=== PATIENT | male | born 1995 | race Caucasian/White ===

== ENCOUNTER 2025-03-23 01:15 | Emergency (ER) | payer OTHER, SELFPAY ==
[2025-03-23 01:20] VITALS: BP 160/108
[2025-03-23 02:13] VITALS: BP 134/97; BMI 24.6
--- NOTE | 2025-03-23 02:23 | ED.GENMED ---
History of Present Illness
General
Chief Complaint: Musculo-Skeletal Complaint
Source: patient
Exam Limitations: none
Time Seen by Provider: 03/23/25 02:21
Nursing documentation reviewed up to this point in time: agreed with
History of Present Illness
History of Present Illness:
Note:
CHIEF COMPLAINT(S)
Swelling and pain near the elbow.
HISTORY OF PRESENT ILLNESS
The patient is a 29-year-old male who presents with swelling and pain near his right elbow, which began around 7:00 PM on the day of the visit. The patient noticed the discomfort while leaning on a table during dinner, but he was uncertain whether
the discomfort was due to the pressure or another cause. 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 The patient
reports that due to the swelling, he tried to 'squeeze out the fluid' and but he was unsuccessful. He subsequently endured a small scratch/cut over the area after trying to squeeze the swelling. He mentions redness and swelling but denies any
palpable mass prior to attempting drainage. The patient has experienced no fever or systemic illness.
Patient is fully able to extend and flex the arm however he does note some discomfort with this. He denies any fevers or chills, nausea or vomiting, spreading of the redness of the arm, recent injections in the elbow joint.
PHYSICAL EXAM
General: Patient is well appearing and in no acute distress; non-toxic
Skin: Warm and dry, small area of erythema noted over the left olecranon
Head: Normocephalic, atraumatic
Eyes: Sclera non-icteric. EOMs intact.
Cardiac: Regular rate
Peripheral Vascular: 2+ radial and ulnar pulses bilaterally
Pulm: Normal respiratory effort
Abdomen: No abdominal tenderness
Musculoskeletal: 5 out of 5 strength of bilateral upper extremity, swelling noted over the left olecranon process. Full ROM of bilateral upper extremities.
Neuro: CN II-XII intact, no focal neurologic deficits.
Psychiatric: Appropriate mood and affect.
PLAN
- Initiate treatment with a high-dose oral non-steroidal anti-inflammatory drug, such as ibuprofen 600-800 mg for anti-inflammatory effects, to be taken round the clock for the next three days.
- Prescribe an oral antibiotic due to potential risk of infection given the cut near the elbow.
- Advise the use of ice or heat as needed for pain relief.
- Administer the first dose of anti-inflammatory and antibiotic medication on-site during the visit.
DIFFERENTIAL DIAGNOSIS
The Differential Diagnosis includes, in no particular order and is not limited to:
1. Olecranon bursitis
2. Insect bite reaction
3. Cellulitis
4. Joint infection
5. Soft tissue injury
6. Repetitive strain injury
7. Trauma-induced bursitis
8. Gout
9. Systemic inflammatory response
10. Deep vein thrombosis
DISPOSITION/MDM
The patient is a 29-year-old male who presents with swelling and pain near his right elbow, which began around 7:00 PM on the day of the visit. The patient noticed the discomfort while leaning on a table during dinner, but he was uncertain whether
the discomfort was due to the pressure or another cause. He has no clear trauma to the elbow however he does have a history of working in construction and he reports that he is repetitive motion in his left elbow of extension with hanging hammer.
On physical exam, he has swelling and redness noted over the left olecranon process consistent with olecranon bursitis. Likely from overuse. He has no associated fevers or chills, highly doubt septic arthritis versus bursitis. However,
considering patient tried to squeeze out the area of swelling, he did endure a small abrasion over the area so we will cover with antibiotics to prevent infection/developing cellulitis. Patient given follow-up with orthopedics. Patient stable for
discharge. Strict return precautions discussed
Past History
Past History
ED Past Medical History: None
ED Past Surgical History: None
Social History
Living: with family
Employment: Employed
Review of Systems
Review of Systems
All Other Systems: ROS reviewed and negative except as documented in HPI and ROS
Phy Exam
Physical Exam
Physical Exam:
See HPI
Course
Orders/Labs/Results
Orders:
Orders
03/23/25 02:35
Ibuprofen [Motrin] 600 mg PO NOW STA
03/23/25 02:37
Cephalexin Monohydrate [Keflex] 500 mg PO NOW STA
Vital Signs
Initial and Last Documented VS:
Initial Vital Signs
Temp Pulse Resp BP Pulse Ox
97.6 F 88 18 160/108 100
03/23/25 01:20 03/23/25 01:20 03/23/25 01:20 03/23/25 01:20 03/23/25 01:20
Last Documented Vital Signs
Temp Pulse Resp BP Pulse Ox
97.6 F 66 18 138/95 97
03/23/25 01:20 03/23/25 03:13 03/23/25 03:13 03/23/25 03:13 03/23/25 03:13
*Critical Care Note
Total Time (30-74mins, 75-104mins- exclusive of procedures): Not Applicable
ED Attending Note
-
Portions of this chart may have been created with voice recognition software.� Occasional wrong word or��sound alike� substitutions may have occurred due to the inherent limitations of voice recognition software.
Discharge Plan
Departure
Patient Disposition: Home (Routine Discharge)
Date of Disposition: 03/23/25
Time of Disposition: 02:57
Patient with high blood pressure during this ER visit?: Yes
Condition: Good
Discharge Problem:
Olecranon bursitis
Instructions: Bursitis - ED discharge instructions, BLOOD PRESSURE, RICE Therapy
Prescriptions:
New
cephalexin 500 mg capsule
500 mg PO QID 5 Days Qty: 20 0RF
No Action
tramadol 50 MG tablet
50 mg PO Q6HPRN PRN (Reason: pain) Qty: 20 0RF
Referrals:
Sammy Castano MD [Active, Orthopedics] - Call in 1-3 days for appt
Stand Alone Forms: Return to Work
Activity Restrictions/Additional Instructions:
Please stop trying to squeeze the skin as this can lead to further cuts which can lead to infection.
You can apply ice or heat to the areas this can help with inflammation. Please take ibuprofen 600 mg every 6 hours as needed for pain. Please do not exceed 3200 mg/day.
As discussed, this condition resolves on its own with supportive care and rest from repetitive activity. If it is not resolving, please call attached number to see orthopedics. Sometimes this fluid is aspirated.
PLEASE RETURN TO THE EMERGENCY DEPARTMENT SHOULD YOU FIND THAT THE REDNESS IS SPREADING UP THE ARM, YOU DEVELOP FEVERS OR CHILLS, NAUSEA OR VOMITING, INABILITY TO MOVE THE ELBOW, OR ANY OTHER SIGNS OR SYMPTOMS WORRISOME TO YOU.
Interventions
Interventions:
*Risk Screen - Suicide Last Done: 03/23/25 01:20
*General Assessment Last Done: 03/23/25 02:12
*Neglect/Abuse Screening Last Done: 03/23/25 01:20
*ED- Fall Risk Assessment Last Done: 03/23/25 02:12
*ED COVID-19 Vaccine History Last Done: 03/23/25 02:12
*Nursing Disposition Last Done: 03/23/25 03:13
ED-Musculoskeletal Assessment Last Done: 03/23/25 02:12
Discharge Date and Time
Discharge Date/Time: 03/23/25 03:13
Print Language: CUBAN
[2025-03-23] MEDS: KEFLEX 500 MG PO (03:08)
[2025-03-23] MEDS: MOTRIN 600 MG PO (03:08)
[2025-03-23 03:13] VITALS: BP 138/95
== END 2025-03-23 03:13 | disposition home or self-care (01) ==
LOC: EMR 01:15
PROVIDERS: EMERGENCY PHYSICIAN Emergency Medicine
DX: M70.22 Olecranon bursitis, left elbow (principal); W22.03XA Walked into furniture, initial encounter
CPT/HCPCS: 99282